=== PATIENT | male | born 1935 | race Caucasian/White ===

== ENCOUNTER → 2017-03-04 | Day surgery (SDC) | payer MEDICARE, OTHER ==
[~2017-03-04] VITALS: Ht 172.7 cm; Wt 105.6 kg
[~2017-03-04] MED LIST: ASPIRIN LO-DOSE81 MG PO; LOTENSIN20 MG PO; NEURONTIN100 MG PO; NORCO 5-325 TA1 EACH PO; NORVASC2.5 MG PO; ZESTRIL40 MG PO; ZOCOR20 MG PO
--- NOTE | ~2017-03-04 | OR ---
PATIENT'S NAME: RENALDO NICOLE [facility] AGE: 81 Y [address] ROOM: [place] [address] LOCATION: [facility] [place] ADMIT DATE: 03/04/2017 OR/Procedure Report DISCHARGE DATE: FAMILY PHYSICIAN: Beth Lara MD ATTENDING PHYSICIAN: Nikunj Ibarra SURGEON: Nikunj Ibarra MD LOSS PREVENTION MANAGER: DATE OF PROCEDURE: 03/04/2017 PREOPERATIVE DIAGNOSES: 1. Bladder neck contracture. 2. History of urothelial carcinoma. 3. Benign prostatic hyperplasia, bladder obstruction, status post laser vaporization. ANESTHESIA: Sedation. INDICATION: This is an 81-year-old gentleman with a long urologic history as noted. His progressive voiding symptoms resulted in a laser vaporization 3-4 years ago. At that time, he was found to have a stage T1 bladder tumor. However, was high grade. He has not had any significant recurrence, but he has developed a bladder neck contracture which is complicated as followup. He was recently in for surveillance. His bladder neck contracture was significant. We were able to get the small flexible scope in. He had some erythematous and bolus changes toward the right side. The right side orifices abnormal secondary to previous resection. He presents at this time for treatment of a bladder neck contracture, we will evaluate his upper tracts and biopsy the right side of his bladder. Having been through this before, he understands the plan as well as the attendant risks and benefits. DESCRIPTION OF PROCEDURE: Having obtained his informed consent, the patient was taken to the operating room. He was prepped and draped sterilely and in lithotomy position. IV sedation was administered. The bladder neck contractures addressed. It is noted that his prostatic urethra is open. He was asking about UroLift procedure. I do not think he has any significant residual tissue. I suspect most of the irritative voiding symptoms that he is having are from the bladder neck contracture and the erythematous changes in his bladder. He has a small capacity bladder. The bladder neck is incised at the 5 and 7 o'clock position. This brings it open nicely. The 26-Latvian scope moves easily back and forth without tension. Cystoscopy reveals the right-sided lesion as noted. Left orifice was unremarkable. It is effluxing clear urine. The right orifice is abnormal from previous resection, but it is effluxing clear urine. PATIENT'S NAME: RENALDO NICOLE [facility] AGE: 81 Y [address] ROOM: [place] [address] LOCATION: [facility] [place] ADMIT DATE: 03/04/2017 OR/Procedure Report DISCHARGE DATE: FAMILY PHYSICIAN: Beth Lara MD ATTENDING PHYSICIAN: Nikunj Ibarra Preliminary survey was undertaken. Soft tissue outlines and gas pattern is unremarkable. Contrast was instilled bilaterally using an acorn catheter. The ureters are delicate and unobstructed. 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 It fills out with injection and it drains readily. There are no upper tract abnormalities. The calices are finely cupped. I watched and drained cystoscopically and fluoroscopically. The cold cup biopsy forceps were passed. The right side is biopsied. Since we had the resectoscope, used the rollerball to cauterize the base and periphery of the biopsy site. At the conclusion, after the bladder neck resection, I passed a 22-Latvian 5 mL [place]. We will leave that to drainage for 48 hours. B and O suppositories were placed and the case was concluded. The patient tolerated the procedure well. Blood loss was negligible. The above-noted specimen was sent. The patient returned to the outpatient recovery, awake and in stable condition. NIKUNJ IBARRA MD [facility]/modl /[id number] CC: Beth Lara MD d: 03/04/17 1042 t: 03/08/17 1355, OPERATIVE SUMMARY
--- NOTE | ~2017-03-04 | HP ---
PATIENT'S NAME: RENALDO NICOLE [facility] AGE: 81 Y [address] ROOM: [place] [address] LOCATION: [facility] ADMIT DATE: 03/04/2017 History & Physical DISCHARGE DATE: FAMILY PHYSICIAN: Jamila Ibarra MD ATTENDING PHYSICIAN: Jamila Ibarra DATE OF SERVICE: CHIEF COMPLAINT: Bladder neck contracture. HISTORY OF PRESENT ILLNESS: This is an 81-year-old gentleman with a history of a bladder neck contracture. He had progressive voiding symptoms. In July 2013, he underwent a planned laser vaporization. At that time, we found a bladder tumor. It was a stage T1, and it was given a high grade. His followup and surveillance have not demonstrated any recurrence. However, his laser vaporization and multiple cystoscopies have been complicated by a bladder neck contracture. He had his last surveillance in August of this year. I had to dilate his contracture with Marialuisa sounds to get the scope in. He is having more irritative voiding symptoms. He goes hourly during the day, but it is not as bothersome as his hourly nocturia. He is trying to limit his p.m. fluid intake. He is not having any nocturnal mobilization of fluid. He is actually asking about the possibility of a UroLift. As we will see, his bladder neck contracture has recurred, and I would not recommend UroLift in the face of his bladder neck obstruction. His surveillance cystoscopy revealed recurrence of his bladder neck contracture. I was able to get the flexible scope through. It was tight. The bladder itself demonstrates some bullous and erythematous changes toward the right side. I have recommended cystoscopy, upper tract evaluation with TUR of his bladder neck contracture, and biopsy of this tissue. He presents at this time for that intervention. PAST MEDICAL HISTORY: He is otherwise relatively healthy for his 81 years. He has high blood pressure and elevated cholesterol. He has a history of shingles. He had a cervical laminectomy in 1989 followed by a fusion in 2002. He has had cataracts done. MEDICATIONS: 1. Gabapentin. 2. Simvastatin. 3. Aspirin. PATIENT'S NAME: RENALDO NCIOLE [facility] AGE: 81 Y [address] ROOM: [place] [address] LOCATION: [facility] ADMIT DATE: 03/04/2017 History & Physical DISCHARGE DATE: FAMILY PHYSICIAN: Jamila Ibarra MD ATTENDING PHYSICIAN: Jamila Ibarra 4. Lisinopril. 5. Amlodipine. ALLERGIES: NONE. REVIEW OF SYSTEMS: Unremarkable other than his voiding symptoms. He denies any cardiopulmonary complaints. He is doing okay from a GI standpoint. SOCIAL HISTORY: He is and lives in [place]. He remains relatively active. He does not drink. Relative to his bladder cancer, he has a remote history of smoking. He quit in 1980. FAMILY HISTORY: There is a family history of prostate cancer in his father. He underwent a biopsy of his prostate in 2000. PHYSICAL EXAMINATION: GENERAL: Pako appears his usual pleasant self. VITAL SIGNS: Some mild hypertension at 181/87. He is 5 feet 8 inches and 233 pounds. HEART: Currently, regular. LUNGS: Clear. ABDOMEN: Obesity and is otherwise benign. GENITOURINARY: As per his cystoscopy. EXTREMITIES: No significant clubbing, cyanosis, or edema. IMPRESSION: Bladder neck contracture with a history of benign prostatic hypertrophy and urothelial carcinoma as outlined above. PLAN: Cystoscopy, transurethral resection of bladder neck contracture, retrograde evaluation, and biopsy of the bladder. Having been through it before, the patient understands plan as well as the attendant risks and benefits. He has had his questions answered, and he wishes to proceed. JAMILA IBARRA MD [facility] PATIENT'S NAME: RENALDO NICOLE [facility] AGE: 81 Y [address] ROOM: [place] [address] LOCATION: [facility] ADMIT DATE: 03/04/2017 History & Physical DISCHARGE DATE: FAMILY PHYSICIAN: Jamila Ibarra MD ATTENDING PHYSICIAN: Jamila Ibarra /[id number] CC: Beth Lara MD D: 133 T: 08//[id number] HISTORY & PHYSICAL
[2017-03-04 08:23] LABS: BASOPHIL # 0.1 K/uL (0.0-0.2); BASOPHIL % 0.8 %; EOSINOPHIL # 0.3 K/uL (0.0-0.5); EOSINOPHIL % 4.7 %; HEMATOCRIT 41.7 % (33.0-50.0); HEMOGLOBIN 13.5 g/dL (11.0-16.0); IMMATURE GRANULOCYTE % 0.2 %; LYMPHOCYTE # 2.4 K/uL (0.8-4.0); LYMPHOCYTE % 39.6 %; MCH 31.4 pg (27.0-34.0); MCHC 32.4 gm/dL (32.0-36.5); MONOCYTE # 0.7 K/uL (0.0-1.0); MONOCYTE % 12.5 %; MPV 9.8 fl (9.4-12.4); NEUTROPHIL # (ANC) 2.5 K/uL (1.4-9.0); NEUTROPHIL % 42.2 %; NRBC % 0 /100WBC (0-0.00); PLATELET COUNT 268 K/uL (150-450); RDW-CV 12.8 % (11.9-14.6); WBC 5.9 K/uL (4.0-11.0)
[2017-03-04 08:40] LABS: ALBUMIN 3.5 gm/dL (3.5-5.0); CALCIUM 8.4 mg/dL (8.5-10.5); CREATININE 1.6 mg/dL (0.6-1.3); TOTAL BILIRUBIN 0.4 mg/dL (0.0-1.5); TOTAL PROTEIN 7.3 g/dL (6.0-8.4)
[2017-03-04 08:45] LABS: ANION GAP 9.7 (10.0-19.0); POTASSIUM 4.7 mMol/L (3.7-5.1)
== END | disposition disaster alternative care site (69) ==
LOC: GPOC 02-28 10:00 → GSDC 07:52 → GPOC 08:30
PROVIDERS: Urology
PROC: 0TBC8ZZ Excision of Bladder Neck, Via Natural or Artificial Opening Endoscopic (ICD-10-PCS; principal; 2017-03-04)
PROC: 0TBB8ZX Excision of Bladder, Via Natural or Artificial Opening Endoscopic, Diagnostic (ICD-10-PCS; 2017-03-04)
PROC: BT14ZZZ Fluoroscopy of Kidneys, Ureters and Bladder (ICD-10-PCS; 2017-03-04)
DX: N32.0 Bladder-neck obstruction (principal); N30.90 Cystitis, unspecified without hematuria; N30.20 Other chronic cystitis without hematuria; I10 Essential (primary) hypertension; E78.00 Pure hypercholesterolemia, unspecified; Z98.890 Other specified postprocedural states; Z79.899 Other long term (current) drug therapy; Z87.891 Personal history of nicotine dependence
CPT/HCPCS: J1956; J2001; J3010; J7120